=== PATIENT | female | born 1990 | race Caucasian/White ===

== ENCOUNTER 2022-08-26 07:03 | Emergency (ER) | payer OTHER ==
[2022-08-26 07:13] VITALS: BP 113/73; PULSE 95; RESP 18; TEMP 98; BMI 25.0
[2022-08-26] MEDS ORDERED: FLUORESCEIN NA 1 EA STRIP OS ONE (07:26)
[2022-08-26] MEDS ORDERED: TETRACAINE 0.5% HCL 0.6ML DROPPER.BOTTLE OS ONE (07:26)
[2022-08-26] MEDS ORDERED: TETRACAINE 0.5% OPHTH SOLN 2 ML BOTTLE ONE (07:28)
[2022-08-26] MEDS ORDERED: FLUORESCEIN NA 1 EA STRIP ONE ×2 (07:29→07:44)
[2022-08-26] MEDS ORDERED: GENTAMICIN SULFATE 0.3% OPHTHALMIC (EYE DROPS) 5ML BOTTLE OD ONE (07:54)
[2022-08-26] MEDS ORDERED: ERYTHROMYCIN 0.5% OPHTHALMIC OINTMENT 3.5 GM TUBE ONE (07:59)
== END 2022-08-26 08:49 | disposition home or self-care (01) ==
LOC: FER 07:03
DX: T15.91XA Foreign body on external eye, part unspecified, right eye, initial encounter (principal); H02.843 Edema of right eye, unspecified eyelid; W45.8XXA Other foreign body or object entering through skin, initial encounter
CPT/HCPCS: 99283-25